=== PATIENT | female | born 1960 | race Caucasian/White ===

== ENCOUNTER 2023-04-08 09:26 | Day surgery (SDC) | payer OTHER ==
[~2023-04-08] VITALS: Ht 152.4 cm; Wt 74.4 kg
[2023-04-08] MEDS ORDERED: LIDOCAINE 2% 100 MG/5 ML UJET TP ONE (11:31)
[2023-04-08] MEDS ORDERED: fentaNYL citrate 0.05 MG/ML VIAL ONE (11:31)
[2023-04-08] MEDS ORDERED: MIDAZOLAM 2 MG/2 ML VIAL ONE (11:31)
== END 2023-04-08 13:04 | disposition home or self-care (01) ==
LOC: MDS 09:26 → MMU 10:24 → MDS 13:04
PROVIDERS: ATTEND Internal Medicine Gastroenterology
DX: Z12.11 Encounter for screening for malignant neoplasm of colon (principal); K57.30 Diverticulosis of large intestine without perforation or abscess without bleeding; E11.9 Type 2 diabetes mellitus without complications; I10 Essential (primary) hypertension; E78.5 Hyperlipidemia, unspecified; F32.A Depression, unspecified; Z80.3 Family history of malignant neoplasm of breast; Z98.51 Tubal ligation status; Z79.84 Long term (current) use of oral hypoglycemic drugs; Z79.899 Other long term (current) drug therapy
CPT/HCPCS: 45378; 82948; J3010; J2250